=== PATIENT | male | born 1965 | race African-American/Black ===

== ENCOUNTER 2017-02-13 06:01 | Day surgery (SDC) | payer BC ==
[2017-02-07 11:31] LABS: HEMOGLOBIN 13.5 g/dL (13.6-17.8)
--- NOTE | ~2017-02-13 | OP ---
Record Of Operation [facility] [address] [place]. [address] NAME: PRASANNA POLK : 61 STATUS : [facility]#: [id number] AGE: 51 ADM/REG DATE : 02/13/17 MR#: [id number] REPORT SERV DATE: 02/16/17 DICTATED BY: GREG TRIANA II DATE: 02/16/17 REPORT STATUS : Draft TRANSCRIBED BY: MODAwa DATE: 02/16/17 DATE OF PROCEDURE: 02/14/2017 PREOPERATIVE DIAGNOSES: 1. Left lower extremity radiculopathy. 2. Lumbar spinal stenosis L4-5, L5-S1 with herniated nucleus pulposus. POSTOPERATIVE DIAGNOSIS: L4-5, L5-S1 stenosis. PROCEDURE: 1. L4-5, L5-S1 laminectomy. 2. Use of the microscope and stereotactic spinal imaging. SURGEON: Greg Triana M.D. FLUIDS: 800 mL LR. ESTIMATED BLOOD LOSS: 15 mL. DRAINS: None. COMPLICATIONS: None. ANTIBIOTIC: Preoperatively. PREOPERATIVE HISTORY: This is a very friendly, 51-year-old gentleman, who reports some back pain, but predominantly pain radiating from the left buttock and into the lateral and posterior aspects of the left leg. We discussed the pros and cons of surgery. On the MRI report, there was a potential for a fragment of disc, which had migrated. I was not able to see clearcut evidence of this on the MRI but felt there could indeed be a piece of disk. We discussed the pros and cons of surgery. He understood the fact that he did have degenerative disk disease, but fortunately, no severe back pain. We discussed the fact that he could of course develop it down the road like anyone but overall, I felt that he was a very reasonable surgical candidate given the complaints and the MRI. The MRI was to me suggestive of some degree of canal and lateral recess stenosis and borderline congenital stenosis. The pedicles appeared to be fairly shortened. DESCRIPTION OF PROCEDURE: After informed consent was obtained, the patient was brought to the operating room at his request and general anesthesia was achieved. He was placed in the prone position, and the back was prepped and draped in a sterile fashion. The stereotactic spinal pin was placed on the right and the intraoperative CT scan was completed. The stereotactic guidance was then used throughout the case. Next, the minimally invasive incision was performed on the left at L4-5 and L5-S1. The quadrant retractor was placed and the microscope was then brought into place and the laminectomy carried out with a high-speed bur and the Kerrison rongeurs and the curettes. Record Of Operation [facility] [address] [place]. 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 The canal itself was rather small and even the aperture of the thecal sac was reduced even after decompression. The L5-S1 level was addressed with removal of portions of the facet on the left. The spinal laminar junction was taken down, and I was able to reach across under the right lamina and remove some ligamentum flavum. Overall, I was pleased with the decompression of the S1 nerve root. The L5 nerve root did not demonstrate a fragment of disk compressing it. Next, we worked at the L4-5 level, where a similar procedure was performed and more of a laminectomy approach performed versus a pure laminotomy. The decompression was carried out in a similar manner and the central and lateral recess stenosis alleviated with the Kerrison rongeurs. The area was now irrigated. I also used the long ball-tipped probes to reach along the anterior aspect of the canal and no extruded fragment noted. I saw no traumatic annulotomy in the disk space on the left at L4-5 or L5-S1. The area was now irrigated. At this point, the hemostasis was confirmed following irrigation. Standard closure was performed, and the patient was then extubated and transferred to PACU in stable condition. I spoke extensively with his preoperatively and postoperatively and discussed the findings as well as the prognosis and the plan and expected recovery as well as contingency plans should he not feel significant relief with the leg pain in the next few weeks and months. LAURYN/BENNY Greg Triana II, M.D. / [id number] CC: Stacey Dutta II, M.D. Sonya Johnson, M.D.
[~2017-02-13 06:01] MED LIST: ENDOCET1 TA3 PO; MOBIC15 MG PO
== END 2017-02-13 16:25 | disposition home or self-care (01) ==
LOC: SDC 06:01
PROVIDERS: Orthopaedic Surgery
PROC: 01NB0ZZ Release Lumbar Nerve, Open Approach (ICD-10-PCS; principal; 2017-02-13 07:00)
DX: M51.27 Other intervertebral disc displacement, lumbosacral region (principal); M48.06 Spinal stenosis, lumbar region; M48.07 Spinal stenosis, lumbosacral region; M51.26 Other intervertebral disc displacement, lumbar region; Z87.891 Personal history of nicotine dependence; Z98.890 Other specified postprocedural states
CPT/HCPCS: 85014; 85018; 88304; 88311; 93005; A9270-GY; J0690; J1030; J1170; J2250; J2370; J2405; J2710; J3010